=== PATIENT | female | born 1980 | race Caucasian/White ===

== ENCOUNTER 2021-01-20 22:24 | Inpatient (IN) | payer MEDICAID, SELFPAY ==
[2021-01-20 22:25] VITALS: BP 153/105; PULSE 129; RESP 14; TEMP 36.2; O2SAT 96; BMI 28.3
--- NOTE | 2021-01-20 22:26 | ED.RN ---
180 called and made staff aware patient will be coming to the ER. They will see patient in the morning
[2021-01-20 23:02] LABS: Absolute Lymphocyte Count 3.31 X10^3/uL (0.83-4.51); Absolute Neutrophil Count 6.6 X10^3/uL (2.0-7.7); Basophil# 0.14 X10^3/uL; Basophil% 1.3 % (0-1); Eosinophils% 1.8 % (0-5); Hematocrit 41.2 % (37-47); Hemoglobin 13.7 g/dL (12.0-15.0); Lymphocyte # 3.31 X10^3/ul (0.83-4.51); Lymphocyte % 29.8 % (19-41); Mean Corp Hgb Conc 33.3 g/dL (32-36); Mean Corpuscular Hgb 29.1 pg (27.0-32.0); Mean Corpuscular Volume 87.7 fL (81-99); Mean Platelet Vol. 8.5 fl (6.2-12.0); Monocyte# 0.84 X10^3/uL; Monocyte% 7.6 % (0-10); NRBC Flagged by Analyzer 0 % (0-5); Neutrophil # 6.57 X10^3/uL (2.7-7.7); Neutrophil % 59.2 % (47-70); Platelet Count 356 K/mm3 (150-450); RBC Distribution Width SD 41.7 fl (35.1-43.9); White Blood Count 11.1 K/mm3 (4.4-11.0)
[2021-01-20 23:16] LABS: Anion Gap 8 (5-15); BUN 10 mg/dL (7-18); BUN/Creat Ratio 14.7 RATIO (10-20); Calcium,Total 8.6 mg/dL (8.5-10.1); Chloride 107 mmol/L (98-107); Creatinine, Serum 0.68 mg/dL (0.55-1.02); EST Glomerular Filtration Rate 102 mL/min (>60); Est Glom Filt Rate - Afr Amer 123 mL/min (>60); Estimated Creatinine Clearance 78.99 ml/min; Glucose 113 mg/dL (74-106); Potassium 3.5 mmol/L (3.5-5.1); Sodium Level 139 mmol/L (136-145)
[2021-01-20 23:17] LABS: Internal QC Validated? YES +Cl - CLEAR BKGD; Pregnancy, Serum, hCG Quali. NEGATIVE Negative
[2021-01-20 23:19] LABS: Amphetamine Urine VISTA NEGATIVE (<1000 ng/mL); Barbiturate Urine VISTA NEGATIVE (< 200 ng/mL); Benzodiazepine Urine VISTA NEGATIVE (< 200 ng/mL); Cocaine Urine VISTA NEGATIVE (< 300 ng/mL); Ecstacy Urine VISTA POSITIVE (< 500 ng/mL); Methadone Urine VISTA NEGATIVE (< 300 ng/mL); PCP Urine VISTA NEGATIVE (< 25 ng/mL); THC Urine VISTA POSITIVE (< 50 ng/mL); Vista UDS pH Range 6
[2021-01-20 23:51] VITALS: BP 150/94; PULSE 103; RESP 20; TEMP 36.9; O2SAT 98
--- NOTE | 2021-01-20 23:52 | HP.PCM.HOS_ITS ---
HPI - General General Date of Admission: 01/20/21 Date of Service: 01/20/21 Chief Complaint: Acute Opiate Withdrawal HPI Narrative The patient is a 40 y/o F w/ PMHx: Anxiety and Depression, Polysubstance abuse (Notes primarily heroin, Cannabis with prior IVDA hx but since 05/2020 snorting only, had been clean x 2 years prior to this but using for many years), Hepatitis C who presents to the [facility] ED on 01/20/21 w/ noted acute opiate withd elizabeth onset starting this evening following last dose of heroin (notes believes it to have been heroin but admits could be synthetic or fentanyl) at ~ 2 pm on day of presentation with usual usage 1/2-1 gm daily with abdominal pain/cramping, generalized body aches and pains, rhinorrhea, piloerection, fatigue, restless leg, sweating, yawning. Patient interested in attaining clean status. She does present to the ED with her boyfriend who also uses these agents with her. Work-up in the ED included T 98.9, heart rate 108, BP 141/83, respiratory rate 16, 98% on room air, CBC with WBC 11.1, hemoglobin 13.7, platelet 356 with no marked shift, BMP with glucose 113 otherwise not marked appearing, negative testing, UDS with positive methamphetamine and cannabis, ethyl alcohol 97. Given urine drug screen findings did discuss possibility with patient at length that she has been purchasing fentanyl or a synthetic agent and noted that there was methamphetamine in the urine drug screen which she adamantly denies but noted it could certainly have been in what ever she has been taking. [facility] Medical History (Updated 01/21/21 @ 01:[address] Harriet Cisneros MD) Anxiety Anxiety and depression Cannabis use disorder, mild, abuse Depression Heroin abuse Home Medications NK 01/20/21 [History Last Taken Unknown] Allergy/AdvReac Type Severity Reaction Status Date / Time No Known Allergies Allergy Verified 01/20/21 22:25 Family History (Updated 01/21/21 @ 01:[address] Harriet Cisneros MD) Mother Anxiety and depression Father CAD (coronary artery disease) Myocardial infarction Surgical History (Updated 01/21/21 @ 01:[address] Harriet Cisneros MD) History of ankle surgery History of shoulder surgery Social History (Updated 01/21/21 @ 01:[address] Harriet Cisneros MD) household members: other details: Currently helping take care of her grandfather in his home. housing: house number of children: 1 current occupational status: unemployed Smoking Status: Never smoker alcohol intake: current substance use type: marijuana and heroin ROS ROS Narrative Admission Review of Systems: CONSTITUTIONAL: No weight loss, fever, + chills, weakness or fatigue. HEENT: Eyes: No visual loss, blurred vision, double vision or yellow sclerae. Ears, Nose, Throat: No hearing loss, sneezing, congestion, runny nose or sore throat. SKIN: No rash or itching, lesions, wounds. CARDIOVASCULAR: No chest pain, chest pressure or chest discomfort, palpitations, edema, orthopnea, syncopal events. RESPIRATORY: No shortness of breath, cough or sputum, wheezing, hemoptysis. GASTROINTESTINAL: + anorexia, nausea, abdominal cramping, No vomiting, diarrhea, melena, BRBPR. GENITOURINARY: No dysuria, frequency, urgency or retention. NEUROLOGICAL: No headache, dizziness, syncope, paralysis, ataxia, numbness or tingling in the extremities, focal weakness, change in bowel or bladder control, seizure. MUSCULOSKELETAL: + muscle, back pain, joint pain or stiffness. HEMATOLOGIC: No anemia, bleeding or bruising. LYMPHATICS: No enlarged nodes. No history of splenectomy. PSYCHIATRIC: + history of depression or anxiety. ENDOCRINOLOGIC: + reports of sweating, cold or heat intolerance. No polyuria or polydipsia. ALLERGIES: No history of asthma, hives, eczema or rhinitis. Vital Signs Vital Signs Vital Signs: 01/20/21 22:25 Temperature 97.2 F L Temperature Source Temporal Pulse Rate 129 H Respiratory Rate 14 Blood Pressure 153/105 H Blood Pressure Mean 121 Pulse Ox 96 Oxygen Delivery Method Room Air Weight Weight: 145 lb 4.554 oz Body Mass Index (BMI) 28.3 Physical Exam Narrative Physical Examination: General: Awake, alert, oriented x 3 and cooperative, seated upright in the ED bed, extremely restless, mildly agitated. Skin: Normal color, normal turgor, no icterus, no cyanosis. HEENT: AT/NC, EOMI, PERRLA, dry MM, no carotid bruits or JVD noted. Lungs: CTA bilaterally, moderate effort, mild decrease BL bases, no rales, ronchi or wheezing. Heart: Tachycardic with regular rhythm; no gallop, rub audible. Abdomen: Soft, mild generalized discomfort with palpation, ND, hyperactive BS, no HSM. Extremities: No cyanosis, clubbing, or edema. Neurological: Patient awake, alert, oriented as noted, cognitive function intact; pupils equally reactive to light and accommodation, cranial nerves II- XII grossly normal, moving all 4 extremities, no focal deficits, strength moderately global decrease secondary to acute presentation, extremely restless, agitated. Psychiatric: Affect appears restless and agitated, no acute evidence of depressive or anxiety feelings. Results Lab / Micro Data Result Diagrams: 01/20/21 22:50 01/20/21 22:50 Labs: Laboratory Results - last 24 hr 01/20/21 01/20/21 01/20/21 22:40 22:40 22:50 WBC 11.1 H RBC 4.70 Hgb 13.7 Hct 41.2 MCV 87.7 MCH 29.1 MCHC 33.3 RDW Std Deviation 41.7 RDW Coeff of Ronit 13.0 Plt Count 356 MPV 8.5 Immature Gran % (Auto) 0.300 Neut % (Auto) 59.2 Lymph % (Auto) 29.8 [place] % (Auto) 7.6 Eos % (Auto) 1.8 Baso % (Auto) 1.3 H Absolute Neuts (auto) 6.6 Absolute Lymphs (auto) 3.31 Nucleated RBC % 0 Sodium Potassium Chloride Carbon Dioxide Anion Gap BUN Creatinine Estim Creat Clear Calc Est GFR (MDRD) Af Amer Est GFR (MDRD) Non-Af BUN/Creatinine Ratio Glucose Calcium Serum , Qual NEGATIVE Urine Opiates Screen NEGATIVE Urine Methadone Screen NEGATIVE Ur Barbiturates Screen NEGATIVE Ur Phencyclidine Scrn NEGATIVE Ur Amphetamines Screen NEGATIVE U Methamphetamin-MDMA POSITIVE H U Benzodiazepines Scrn NEGATIVE Urine Cocaine Screen NEGATIVE U Cannabinoids Screen POSITIVE H Ur Drug Screen Comment Ethyl Alcohol 01/20/21 01/20/21 22:50 22:50 WBC RBC Hgb Hct MCV MCH MCHC RDW Std Deviation RDW Coeff of Ronit Plt Count MPV Immature Gran % (Auto) Neut % (Auto) Lymph % (Auto) [place] % (Auto) Eos % (Auto) Baso % (Auto) Absolute Neuts (auto) Absolute Lymphs (auto) Nucleated RBC % Sodium 139 Potassium 3.5 Chloride 107 Carbon Dioxide 24.0 Anion Gap 8 BUN 10 Creatinine 0.68 Estim Creat Clear Calc 78.99 Est GFR (MDRD) Af Amer 123 Est GFR (MDRD) Non-Af 102 BUN/Creatinine Ratio 14.7 Glucose 113 H Calcium 8.6 Serum , Qual Urine Opiates Screen Urine Methadone Screen Ur Barbiturates Screen Ur Phencyclidine Scrn Ur Amphetamines Screen U Methamphetamin-MDMA U Benzodiazepines Scrn Urine Cocaine Screen U Cannabinoids Screen Ur Drug Screen Comment Ethyl Alcohol 97.0 Assessment & Plan Assessment/Plan (1) Opiate withdrawal: PLAN: The patient is a 40 y/o F w/ PMHx: Anxiety and Depression, Polysubstance abuse, Hepatitis C who presents to the [facility] ED on 01/20/21 w/ noted acute opiate withdrawal onset starting this evening following last dose of heroin at ~ 2 pm on day of presentation. 1. Acute Opiate Withdrawal: Will admit to [facility], routine labs including CBC, CMP, urine for drug screen obtained in the ED, will initiate and continue on protocol with tapering course of Subutex, as needed tylenol, ibuprofen, bowel regimen, gabapentin, Bentyl, Vistaril, methocarbamol, clonidine, PRN nightly trazodone for insomnia, IV fluids, IV antiemetics. Once patient clinically improved and completion of taper nearing will plan consultation with case management for transition to next level of rehabilitation care. Given patient UDS discussed possibility that patient had been possibly using a synthetic versus fentanyl. 2. Polysubstance Abuse, IVDA Hx, History of Hepatitis C, Chronic: Patient currently not candidate for hep C treatment currently as needs to be clean, sober x 6 months, documented attendance NA or AA meetings, counseling and ongoing negative drug screens. HIV, hepatitis panel to assess for co-infection pending. Encouraged PCP establishment and follow-up. 3. Anxiety and Depression: Patient with reported history, not on any agents, given presentation will encourage continued follow-up with 180 with counseling especially given ongoing significant drug usage. 4. DVT prophylaxis: Low risk, encourage ambulation. Charges/Coding Visit Charges Inpatient E&M: 22634 Init Hosp L3
[2021-01-21 00:01] VITALS: BMI 28.3
--- NOTE | 2021-01-21 00:28 | EDS_ITS ---
HPI History of Present Illness Chief Complaint: Substance Abuse Informant: patient Narrative Narrative: Patient is a 40-year-old female with history of IV drug abuse presenting for detox. Patient states that she uses fentanyl daily to snort. She last used this morning. She does have a history of hepatitis C. She does have a past history of IV drug use but did not do any currently. She states she relapsed couple months ago but before that was clean for 2 years. Does smoke cigarettes daily. Is only of a headache. She normally will take ibuprofen for headaches. States she feels very jittery right now. No other complaints at this time. [facility] Medical History Anxiety Anxiety and depression Cannabis use disorder, mild, abuse Depression Heroin abuse Home Medications NK 01/20/21 [History Last Taken Unknown] Allergy/AdvReac Type Severity Reaction Status Date / Time No Known Allergies Allergy Verified 01/20/21 22:25 Family History Mother Anxiety and depression Father CAD (coronary artery disease) Myocardial infarction Surgical History History of ankle surgery History of shoulder surgery Social History household members: other details: Currently helping take care of her grandfather in his home. housing: house number of children: 1 current occupational status: unemployed Smoking Status: Never smoker alcohol intake: current substance use type: marijuana and heroin ROS ROS ED Constitutional Constitutional ED: Reports malaise; Denies chills or fever(s) Eyes Eyes: Denies blurry vision or loss of vision ENT ENT ED: Denies rhinorrhea or sore throat Cardiovascular Cardiovascular: Denies chest pain or dizziness Respiratory/Chest Respiratory/Chest: Denies cough or dyspnea Gastrointestinal Gastrointestinal: Denies nausea or vomiting Genitourinary Genitourinary ED: Denies dysuria or hematuria Musculoskeletal Musculoskeletal: Denies arthralgias or myalgias Integumentary Denies rash or wounds Neurologic Neurologic: Reports headache(s); Denies focal weakness Psychiatric Psychiatric: Denies anxiety or behavioral changes EXAM Physical Exam Const Vital Signs: 01/20/21 22:25 Temperature 97.2 F L Temperature Source Temporal Pulse Rate 129 H Respiratory Rate 14 Blood Pressure 153/105 H Blood Pressure Mean 121 Pulse Ox 96 Oxygen Delivery Method Room Air Positive well nourished and well developed General Appearance ED: well developed HEENT Reports moist mucous membranes atraumatic Eyes PERRL and EOMs intact bilaterally Neck supple Lymph Lymphatic: no lymphadenopathy noted Chest Wall inspection of chest normal Resp clear to auscultation bilaterally Cardio regular rhythm and no murmurs Rate: tachycardic GI soft to palpation, non-tender and non-distended Back/Spine no CVA tenderness Neuro oriented x3 and CN's II-XII intact bilaterally Sensorium / Orientation: alert Psych mental status grossly normal and thought process normal Skin Lesions: no lesions Rashes: no rashes MDM MDM MDM Narrative Medical decision making narrative: Patient evaluated for request of opioid wit hdrawal. Is she appears to be starting to withdrawal and is mildly tachycardic and tremulous. She appears nontoxic and in no acute distress. She is given Motrin for her headache. She is admitted to hospital service for inpatient detox. Of note drug screen is negative for opioids however she she might be using fentanyl. Lab Data Labs: Laboratory Results - last 24 hr 01/20/21 01/20/21 01/20/21 22:40 22:40 22:50 WBC 11.1 H RBC 4.70 Hgb 13.7 Hct 41.2 MCV 87.7 MCH 29.1 MCHC 33.3 RDW Std Deviation 41.7 RDW Coeff of Ronit 13.0 Plt Count 356 MPV 8.5 Immature Gran % (Auto) 0.300 Neut % (Auto) 59.2 Lymph % (Auto) 29.8 [place] % (Auto) 7.6 Eos % (Auto) 1.8 Baso % (Auto) 1.3 H Absolute Neuts (auto) 6.6 Absolute Lymphs (auto) 3.31 Nucleated RBC % 0 Sodium Potassium Chloride Carbon Dioxide Anion Gap BUN Creatinine Estim Creat Clear Calc Est GFR (MDRD) Af Amer Est GFR (MDRD) Non-Af BUN/Creatinine Ratio Glucose Calcium Serum , Qual NEGATIVE Urine Opiates Screen NEGATIVE Urine Methadone Screen NEGATIVE Ur Barbiturates Screen NEGATIVE Ur Phencyclidine Scrn NEGATIVE Ur Amphetamines Screen NEGATIVE U Methamphetamin-MDMA POSITIVE H U Benzodiazepines Scrn NEGATIVE Urine Cocaine Screen NEGATIVE U Cannabinoids Screen POSITIVE H Ur Drug Screen Comment Ethyl Alcohol HIV 1&2 Antibody 01/20/21 01/20/21 01/20/21 22:50 22:50 22:50 WBC RBC Hgb Hct MCV MCH MCHC RDW Std Deviation RDW Coeff of Ronit Plt Count MPV Immature Gran % (Auto) Neut % (Auto) Lymph % (Auto) [place] % (Auto) Eos % (Auto) Baso % (Auto) Absolute Neuts (auto) Absolute Lymphs (auto) Nucleated RBC % Sodium 139 Potassium 3.5 Chloride 107 Carbon Dioxide 24.0 Anion Gap 8 BUN 10 Creatinine 0.68 Estim Creat Clear Calc 78.99 Est GFR (MDRD) Af Amer 123 Est GFR (MDRD) Non-Af 102 BUN/Creatinine Ratio 14.7 Glucose 113 H Calcium 8.6 Serum , Qual Urine Opiates Screen Urine Methadone Screen Ur Barbiturates Screen Ur Phencyclidine Scrn Ur Amphetamines Screen U Methamphetamin-MDMA U Benzodiazepines Scrn Urine Cocaine Screen U Cannabinoids Screen Ur Drug Screen Comment Ethyl Alcohol 97.0 HIV 1&2 Antibody Non-Reactive Discharge Plan Dx/Rx/DC Orders Clinical Impression: Opiate withdrawal Disposition Disposition: Acute Care Hospital [facility] Discharge Date/Time: 01/21/21 00:03
[2021-01-21] MEDS: Lactated Ringers 1,000 ML 125 ML IV (00:30)
[2021-01-21] MEDS: Ibuprofen 600 MG Tablet PO ×3 (00:41→22:07)
[2021-01-21 00:42] VITALS: BP 141/83; PULSE 108; RESP 16; TEMP 37.2; O2SAT 98
[2021-01-21] MEDS: Buprenorphine HCl 2 MG TAB.SUBL SL ×3 (00:48→16:00)
[2021-01-21 00:49] LABS: HIV - WCH Non-Reactive (Nonreactive)
[2021-01-21] MEDS: hydrOXYzine PAM 25 MG Capsule 50 MG PO ×3 (02:56→16:04)
[2021-01-21] MEDS: Ondansetron 8 MG Tablet PO (02:56)
[2021-01-21] MEDS: Dicyclomine 10 MG Capsule 20 MG PO ×2 (02:57→09:25)
[2021-01-21] MEDS: cloNIDine HCl 0.1 MG Tablet PO (03:52)
[2021-01-21 05:10] VITALS: BP 150/84; PULSE 88; RESP 18; TEMP 37.1; O2SAT 97
[2021-01-21] MEDS: Methocarbamol 750 MG Tablet 1500 MG PO ×2 (05:12→12:14)
[2021-01-21] MEDS: Gabapentin 300 MG Capsule PO ×2 (05:12→18:21)
[2021-01-21 08:00] VITALS: O2SAT 95
[2021-01-21 09:00] VITALS: BP 118/80; PULSE 99; RESP 18; TEMP 36.4; O2SAT 98
--- NOTE | 2021-01-21 10:17 | PN.HOSP_ITS ---
Subjective Subjective Patient in and examined. She is here for acute opiate withdrawal. She complains of tremors and chills and abdominal cramps. Review of systems otherwise negative. She has otherwise remained hemodynamically stable. Objective Data Objective Data Vital Signs: Vital Signs Temp Pulse Resp BP Pulse Ox 97.6 F L 99 18 118/80 98 01/21/21 09:00 01/21/21 09:00 01/21/21 09:00 01/21/21 09:00 01/21/21 09:00 Oxygen Delivery Method Room Air Weight: 144 lb 13.499 oz Body Mass Index (BMI) 28.3 Intake & Output: Intake and Output for Last 24 Hours 01/19/21 01/20/21 01/21/21 23:59 23:59 23:59 Intake Total 1120 / 1120 Balance 1120 / 1120 Lab / Micro Data Result Diagrams: 01/20/21 22:50 01/20/21 22:50 Labs: Laboratory Results - last 24 hr 01/20/21 01/20/21 01/20/21 22:40 22:40 22:50 WBC 11.1 H RBC 4.70 Hgb 13.7 Hct 41.2 MCV 87.7 MCH 29.1 MCHC 33.3 RDW Std Deviation 41.7 RDW Coeff of Ronit 13.0 Plt Count 356 MPV 8.5 Immature Gran % (Auto) 0.300 Neut % (Auto) 59.2 Lymph % (Auto) 29.8 [place] % (Auto) 7.6 Eos % (Auto) 1.8 Baso % (Auto) 1.3 H Absolute Neuts (auto) 6.6 Absolute Lymphs (auto) 3.31 Nucleated RBC % 0 Sodium Potassium Chloride Carbon Dioxide Anion Gap BUN Creatinine Estim Creat Clear Calc Est GFR (MDRD) Af Amer Est GFR (MDRD) Non-Af BUN/Creatinine Ratio Glucose Calcium Serum , Qual NEGATIVE Urine Opiates Screen NEGATIVE Urine Methadone Screen NEGATIVE Ur Barbiturates Screen NEGATIVE Ur Phencyclidine Scrn NEGATIVE Ur Amphetamines Screen NEGATIVE U Methamphetamin-MDMA POSITIVE H U Benzodiazepines Scrn NEGATIVE Urine Cocaine Screen NEGATIVE U Cannabinoids Screen POSITIVE H Ur Drug Screen Comment Ethyl Alcohol HIV 1&2 Antibody 01/20/21 01/20/21 01/20/21 22:50 22:50 22:50 WBC RBC Hgb Hct MCV MCH MCHC RDW Std Deviation RDW Coeff of Ronit Plt Count MPV Immature Gran % (Auto) Neut % (Auto) Lymph % (Auto) [place] % (Auto) Eos % (Auto) Baso % (Auto) Absolute Neuts (auto) Absolute Lymphs (auto) Nucleated RBC % Sodium 139 Potassium 3.5 Chloride 107 Carbon Dioxide 24.0 Anion Gap 8 BUN 10 Creatinine 0.68 Estim Creat Clear Calc 78.99 Est GFR (MDRD) Af Amer 123 Est GFR (MDRD) Non-Af 102 BUN/Creatinine Ratio 14.7 Glucose 113 H Calcium 8.6 Serum , Qual Urine Opiates Screen Urine Methadone Screen Ur Barbiturates Screen Ur Phencyclidine Scrn Ur Amphetamines Screen U Methamphetamin-MDMA U Benzodiazepines Scrn Urine Cocaine Screen U Cannabinoids Screen Ur Drug Screen Comment Ethyl Alcohol 97.0 HIV 1&2 Antibody Non-Reactive Physical Exam Const alert, oriented x3 and no apparent distress Exam Limitations: no limitations HEENT head/scalp atraumatic and moist oral mucous membranes Head and Scalp: normocephalic Eyes PERRL, EOMs intact bilaterally and conjunctivae normal Neck no lymphadenopathy Resp normal respiratory effort, no retractions, no use of accessory muscles and clear to auscultation bilaterally Cardio regular rate, regular rhythm, S1 normal heart sound, S2 normal heart sound and no gallops GI normal to inspection, nondistended, normoactive bowel sounds, soft to palpation, non-tender and non-distended Extremity normal to inspection, full ROM and no clubbing, cyanosis or edema Peripheral Pulses: Yes pulses 2+ throughout Skin no rashes or lesions noted Neuro oriented x3 Sensorium / Orientation: awake and alert Psych affect normal Assessment & Plan Assessment/Plan (1) Opiate withdrawal: PLAN: #Acute opioid withdrawal * On opiate withdrawal protocol with buprenorphine * Monitor CI NA score * On adjunctive medications for supportive treatment #History of hepatitis C: * Chronic. Will need to be clean for at least 6 months before qualifying for treatment. * Follow-up with GI on outpatient basis #Anxiety and depression: Not on any medication currently. To follow-up with PCP on outpatient basis. DVT prophylaxis: Low risk. Encourage ambulation. Charges/Coding Visit Charges Inpatient E&M: 96834 Subs Hosp L2
[2021-01-21 14:12] VITALS: BP 140/87; PULSE 90; RESP 15; TEMP 36.8; O2SAT 98
[2021-01-21 21:21] VITALS: BP 130/76; PULSE 87; RESP 18; TEMP 36.8; O2SAT 98
[2021-01-21] MEDS: Mag Hydrox/Al Hydrox/Simeth 30 ML UDC PO (22:07)
[2021-01-21] MEDS: traZODone 100 MG Tablet PO (22:07)
[2021-01-22] MEDS: Buprenorphine HCl 2 MG TAB.SUBL SL ×3 (00:30→16:05)
[2021-01-22] MEDS: hydrOXYzine PAM 25 MG Capsule 50 MG PO ×3 (00:30→15:04)
[2021-01-22 03:57] VITALS: BP 146/96; PULSE 63; RESP 18; TEMP 36.7; O2SAT 96
[2021-01-22 07:44] VITALS: O2SAT 95
[2021-01-22] MEDS: Mag Hydrox/Al Hydrox/Simeth 30 ML UDC PO (08:01)
--- NOTE | 2021-01-22 08:32 | ADDICTION ---
This internal communications writer met with PT to conduct ASAM, MSE, DUDIT assessments and to plan for d/c. PT A+Ox4 and participated appropriately. All assessments completed, faxed to [facility] and placed in PT's chart. PT to d/c to home and plans to follow up with this internal communications writer /for ongoing counseling services at [facility] post d/c. PT has scheduled appointment with this internal communications writer on 01/29/21 and is amiable to this plan. PT reported that she uses opioids due to pain related to Fibromyalgia. This internal communications writer provided resources for PCP and will inform [facility] of this for other referrals/consultations.
[2021-01-22 09:30] VITALS: BP 149/83; PULSE 88; RESP 18; TEMP 36.8; O2SAT 100
--- NOTE | 2021-01-22 12:12 | PN.HOSP_ITS ---
Subjective Subjective Patient seen and examined. She still complains of tremors, but has no other active complaints. Review of systems is otherwise negative. She has remained hemodynamically stable. Objective Data Objective Data Vital Signs: Vital Signs Temp Pulse Resp BP Pulse Ox 98.2 F 88 18 149/83 H 100 01/22/21 09:30 01/22/21 09:30 01/22/21 09:30 01/22/21 09:30 01/22/21 09:30 Oxygen Delivery Method Room Air Weight: 144 lb 13.499 oz Body Mass Index (BMI) 28.3 Intake & Output: Intake and Output for Last 24 Hours 01/20/21 01/21/21 01/22/21 23:59 23:59 23:59 Intake Total 1720 / 1720 360 / 360 Balance 1720 / 1720 360 / 360 Lab / Micro Data Result Diagrams: 01/20/21 22:50 01/20/21 22:50 Physical Exam Const alert, oriented x3 and no apparent distress Exam Limitations: no limitations HEENT head/scalp atraumatic and moist oral mucous membranes Eyes PERRL, EOMs intact bilaterally and conjunctivae normal Neck no lymphadenopathy Resp normal respiratory effort, no retractions, no use of accessory muscles and clear to auscultation bilaterally Cardio regular rate, regular rhythm, S1 normal heart sound, S2 normal heart sound and no gallops GI normal to inspection, nondistended, normoactive bowel sounds, soft to palpation, non-tender and non-distended Extremity normal to inspection, full ROM and no clubbing, cyanosis or edema Skin no rashes or lesions noted Neuro oriented x3 Sensorium / Orientation: awake and alert Psych Psych Narrative: anxious Assessment & Plan Assessment/Plan (1) Opiate withdrawal: PLAN: #Acute opioid withdrawal * On opiate withdrawal protocol with buprenorphine * Monitor CI NA score * On adjunctive medications for supportive treatment #History of hepatitis C: * Chronic. Will need to be clean for at least 6 months before qualifying for treatment. * Follow-up with GI on outpatient basis #Anxiety and depression: Not on any medication currently. To follow-up with PCP on outpatient basis. DVT prophylaxis: Low risk. Encourage ambulation. Charges/Coding Visit Charges Inpatient E&M: 28769 Subs Hosp L2
[2021-01-22 14:09] LABS: HEPATITIS B SURFACE AG Negative (Negative); Hepatitis B Core AB IgM Negative (Negative); Hepatitis B Core Ab Total Negative (Negative); Hepatitis Be Ab Negative (Negative); Hepatitis Be Ag Negative (Negative)
[2021-01-22] MEDS: Methocarbamol 750 MG Tablet 1500 MG PO ×2 (15:04→21:18)
[2021-01-22 15:05] VITALS: BP 145/113; PULSE 88; RESP 18; TEMP 36.3; O2SAT 99
[2021-01-22] MEDS: Gabapentin 300 MG Capsule PO (16:05)
[2021-01-22 21:04] VITALS: BP 159/96; PULSE 71; RESP 18; TEMP 36.9; O2SAT 99
[2021-01-22] MEDS: cloNIDine HCl 0.1 MG Tablet PO (21:17)
[2021-01-22] MEDS: traZODone 100 MG Tablet PO (21:17)
[2021-01-22] MEDS: Ibuprofen 600 MG Tablet PO (21:17)
[2021-01-22] MEDS: Dicyclomine 10 MG Capsule 20 MG PO (21:17)
[2021-01-23] MEDS: Acetaminophen 325 MG Tablet 650 MG PO (01:38)
[2021-01-23] MEDS: Buprenorphine HCl 2 MG TAB.SUBL SL ×2 (01:38→12:10)
[2021-01-23] MEDS: hydrOXYzine PAM 25 MG Capsule 50 MG PO ×3 (01:38→17:31)
[2021-01-23 03:01] VITALS: BP 130/67; PULSE 70; RESP 18; TEMP 36.7; O2SAT 99
[2021-01-23 09:00] VITALS: BP 160/87; PULSE 77; RESP 20; TEMP 36.1; O2SAT 99
[2021-01-23 09:12] LABS: Hep B Surface Antibodies Non Reactive (.)
[2021-01-23 09:13] LABS: Hepatitis C Ab >11.0 s/co ratio (0.0-0.9)
[2021-01-23] MEDS: Dicyclomine 10 MG Capsule 20 MG PO ×2 (09:35→17:31)
[2021-01-23] MEDS: Ibuprofen 600 MG Tablet PO (09:36)
[2021-01-23] MEDS: cloNIDine HCl 0.1 MG Tablet PO ×2 (09:36→21:21)
[2021-01-23] MEDS: Methocarbamol 750 MG Tablet 1500 MG PO ×2 (09:38→21:22)
--- NOTE | 2021-01-23 10:30 | NURSING ---
pts boyfriend walked onto [facility], staTEs he was with [facility] and proceeded to walk into pts rm. this rn, gema denson and parul britt back to and informed bf that pt may not have visitors and that he would need to leave. bf states he needs the pts car keys to get into her car and that he will bring the keys back. this is ok with pt. locked tote unlocked, keys given to bf and parul britt escorted bf out of building with security. bf brought keys back to the hospital at [facility]. keys placed back in tote and tote relocked. pt aware. pt upset by bf coming into her rm. this rn apologized to pt. pt aware bf is not allowed on hospital property and that he should not be coming back.
--- NOTE | 2021-01-23 14:24 | PN.HOSP_ITS ---
Subjective Subjective Patient seen and examined. She was still complaining of cramps from the withdrawal and also had significant anxiety. Even though today's day 3, she does not feel comfortable being discharged home. Review of systems otherwise negative. Objective Data Objective Data Vital Signs: Vital Signs Temp Pulse Resp BP Pulse Ox 96.9 F L 77 20 H 160/87 H 99 01/23/21 09:00 01/23/21 09:00 01/23/21 09:00 01/23/21 09:00 01/23/21 09:00 Oxygen Delivery Method Room Air Weight: 144 lb 13.499 oz Body Mass Index (BMI) 28.3 Intake & Output: Intake and Output for Last 24 Hours 01/21/21 01/22/21 01/23/21 23:59 23:59 23:59 Intake Total 1720 / 1720 1000 / 1000 200 / 200 Balance 1720 / 1720 1000 / 1000 200 / 200 Lab / Micro Data Result Diagrams: 01/20/21 22:50 01/20/21 22:50 Labs: Laboratory Results - last 24 hr 01/21/21 06:30 Hep Bs Antigen Negative Hep Bs Antibody Non Reactive Hep B Core Total Ab Negative Hep B Core IgM Ab Negative Hepatitis Be Antibody Negative Hepatitis Be Antigen Negative Hepatitis C Antibody >11.0 H Physical Exam Const alert and oriented x3 Constitutional Narrative: very anxious Exam Limitations: no limitations HEENT head/scalp atraumatic and moist oral mucous membranes Head and Scalp: normocephalic Eyes PERRL, EOMs intact bilaterally and conjunctivae normal Neck no lymphadenopathy Resp normal respiratory effort, no retractions, no use of accessory muscles and clear to auscultation bilaterally Cardio regular rate, regular rhythm, S1 normal heart sound, S2 normal heart sound and no gallops GI normal to inspection, nondistended, normoactive bowel sounds, soft to palpation and non-distended GI Narrative: minimal tenderness to palpation, though she complained of intense cramping. Extremity normal to inspection, full ROM and no clubbing, cyanosis or edema Peripheral Pulses: Yes pulses 2+ throughout Skin no rashes or lesions noted Neuro oriented x3 Sensorium / Orientation: awake and alert Psych Psych Narrative: very anxious Assessment & Plan Assessment/Plan (1) Opiate withdrawal: PLAN: #Acute opioid withdrawal * On opiate withdrawal protocol with buprenorphine * Complains of severe anxiety and abdominal cramping today * Monitor CI NA score * On adjunctive medications for supportive treatment #History of hepatitis C: * Chronic. Will need to be clean for at least 6 months before qualifying for treatment. * Follow-up with GI on outpatient basis #Anxiety and depression: Not on any medication currently. To follow-up with PCP on outpatient basis. #Fibromyalgia * doesnt follow up with rheumatology. * counseled that she would need to establish with rheumatology on outpatient basis to manage her fibromyalgia * DVT prophylaxis: Low risk. Encourage ambulation. Disposition: For likely DC home tomorrow. Charges/Coding Visit Charges Inpatient E&M: 31216 Subs Hosp L2
[2021-01-23 14:43] VITALS: BP 130/89; PULSE 90; RESP 18; TEMP 36.6; O2SAT 99
[2021-01-23 21:20] VITALS: BP 115/68; PULSE 89; RESP 16; TEMP 36.6; O2SAT 97
[2021-01-23] MEDS: traZODone 100 MG Tablet PO (21:22)
[2021-01-24 07:35] VITALS: O2SAT 98
[2021-01-24 07:40] VITALS: BP 153/81; PULSE 79; RESP 18; TEMP 36.6; O2SAT 95
[2021-01-24] MEDS: Dicyclomine 10 MG Capsule 20 MG PO (07:43)
[2021-01-24] MEDS: hydrOXYzine PAM 25 MG Capsule 50 MG PO (07:43)
--- NOTE | 2021-01-24 08:23 | PCM.DC ---
Discharge Instructions Diet Discharge Diet: No restrictions Activity Discharge Activity: Return to Normal Activity Dressing / Incision Call your doctor if you observe: Fever of 101 or Higher, Shortness of breath, Dizziness, Swelling in the ankles, Chest pain and Increased palpitations (irregular heartbeat) Follow Up Care Test Results: Test results from this visit will be discussed in further detail at your follow-up appointment, if applicable. Discharge Plan Admission Admit Date/Time: 01/20/21 23:55 Attending Provider: Douglas Lima Primary Care Provider: Care Physician,Ayanna Primary Discharge Orders/Prescriptions Prescriptions: No Action NK RF: 0 Referrals / Follow Up: Care Physician,No Primary [Primary Care Provider] - Disposition Disposition (needs filled in before D/C Order can be placed): Home, Self Care
--- NOTE | 2021-01-24 14:24 | PCM.DC.SUM ---
Providers Date of Admission: 01/20/21 Primary Care Physician: No Primary Care Phys Reason For Visit: OPIATE WITHDRAWAL Diagnosis Discharge Diagnosis (1) Opiate withdrawal: Status: Acute Code(s): F11.23 - Opioid dependence with withdrawal Medications at Discharge Home Medications NK 01/20/21 Hospital Course Operations None Procedures None Summary of Care Provided Minutes Spent on Discharge: 35 Hospital Course: Per HPI: The patient is a 40 y/o F w/ PMHx: Anxiety and Depression, Polysubstance abuse (Notes primarily heroin, Cannabis with prior IVDA hx but since 05/2020 snorting only, had been clean x 2 years prior to this but using for many years), Hepatitis C who presents to the [facility] ED on 01/20/21 w/ noted acute opiate withdrawal onset starting this evening following last dose of heroin (notes believes it to have been heroin but admits could be synthetic or fentanyl) at ~ 2 pm on day of presentation with usual usage 1/2-1 gm daily with abdominal pain/cramping, generalized body aches and pains, rhinorrhea, piloerection, fatigue, restless leg, sweating, yawning. Patient interested in attaining clean status. She does present to the ED with her boyfriend who also uses these agents with her. Work-up in the ED included T 98.9, heart rate 108, BP 141/83, respiratory rate 16, 98% on room air, CBC with WBC 11.1, hemoglobin 13.7, platelet 356 with no marked shift, BMP with glucose 113 otherwise not marked appearing, negative testing, UDS with positive methamphetamine and cannabis, ethyl alcohol 97. Given urine drug screen findings did discuss possibility with patient at length that she has been purchasing fentanyl or a synthetic agent and noted that there was methamphetamine in the urine drug screen which she adamantly denies but noted it could certainly have been in what ever she has been taking. Hospital Course: 1. Acute opiate [id number] female presents to the hospital after being clean for about 2 years and relapsed using 0.5 to 1 g daily. She thinks that she has been using heroin but notes it could be synthetic or fentanyl at this point and would like detox. She did complete 4 days of detox and completed her withdrawal protocol however she remains anxious I discussed with her that the plan was to meet with 180 on 01/29/2021, and while the documentation yesterday supports that she was okay with this plan today she states that she thought that it was going to be much sooner than that and she does not think that she can manage without intervention. I discussed with her that keeping her here for an extra 5days was not an option however once discharged she could potentially reach out to them on an outpatient basis and she said that she may go back to a program that she used in [place]. She was ultimately okay with the plan for discharge today. 2. History of hepatitis C, anxiety and depression, fibromyalgia her chronic medical conditions which complicate her care. Her home medications were continued where appropriate Physical Exam Const alert, oriented x3 and no apparent distress General Appearance: cooperative HEENT normocephalic Mouth: dry mucous membranes Eyes PERRL, EOMs intact bilaterally and conjunctivae normal Neck supple and no JVD Resp normal respiratory effort, no retractions, no use of accessory muscles and clear to auscultation bilaterally Auscultation: Negative for crackles, rales, rhonchi or wheezes Cardio regular rate, regular rhythm, S1 normal heart sound, S2 normal heart sound and no murmurs GI soft to palpation, non-tender and non-distended; Negative for hepatosplenomegaly Extremity no clubbing, cyanosis or edema Skin no rashes or lesions noted Neuro no focal motor deficits and no sensory deficits noted Psych Activity / Motor Behavior: restless Mood & Affect: anxious Weight / BMI Weight Weight: 144 lb 13.499 oz Body Mass Index (BMI) 28.3 ABG / Lab / Microbiology Data Result Diagrams: 01/20/21 22:50 01/20/21 22:50 D/C Instructions Discharge Diet: No restrictions Call your doctor if you observe: Fever of 101 or Higher, Shortness of breath, Dizziness, Swelling in the ankles, Chest pain and Increased palpitations (irregular heartbeat) Meaningful Use Info Meaningful Use Diagnoses (Choose all that apply): None applicable Discharge Plan Admission Admit Date/Time: 01/20/21 23:55 Attending Provider: Douglas Lima Primary Care Provider: Care Physician,No Primary Discharge Orders/Prescriptions Prescriptions: No Action NK RF: 0 Referrals / Follow Up: Care Physician,No Primary [Primary Care Provider] - Disposition Disposition (needs filled in before D/C Order can be placed): Home, Self Care Charges/Coding Visit Charges Inpatient E&M: 10686 Subs Hosp L2
== END 2021-01-24 11:00 | disposition home or self-care (01) | DRG 773 ==
LOC: ED 23:27 → PCU 01-21 02:48
PROVIDERS: Admitting Provider Family Medicine; Emergency Provider Emergency Medicine; Visit Provider Family Medicine
DX: F11.23 Opioid dependence with withdrawal (principal); F12.10 Cannabis abuse, uncomplicated; B18.2 Chronic viral hepatitis C; M79.7 Fibromyalgia; F17.210 Nicotine dependence, cigarettes, uncomplicated; F32.9 Major depressive disorder, single episode, unspecified; F41.9 Anxiety disorder, unspecified
CPT/HCPCS: 36415; 80048; 80307; 82077; 84703; 85025; 86703; 86704; 86705; 86706; 86707; 86803; 87340; 87350; 99283; J7120

== ENCOUNTER → 2021-02-03 13:08 | Outpatient (CLI) | payer MEDICAID, SELFPAY ==
[2021-01-21 00:01] VITALS: BMI 28.3
[2021-02-03 16:16] LABS: Hepatitis B Surface Antigen Non-Reactive (Nonreactive); Hepatitis C Antibody Preliminary Reactive (Nonreactive)
[2021-02-04 14:52] LABS: AST(SGOT) 18 U/L (15-37); Alanine Aminotransfer ALT/SGPT 23 U/L (13-56); Albumin, Serum 4.6 g/dL (3.2-5.0); Alkaline Phosphatase 66 U/L (45-117); Globulin 3.3 g/dL (2.2-4.2); Protein, Total 7.9 g/dL (6.4-8.2)
[2021-02-06 12:09] LABS: HCV Quant. RNA PCR HCV Not Detected IU/mL (.)
== END ==
DX: R63.0 Anorexia (principal); R53.81 Other malaise; R11.0 Nausea
CPT/HCPCS: 36415; 80076; 86803; 87340; 87522

== ENCOUNTER → 2021-06-03 09:57 | Outpatient (CLI) | payer MEDICAID, SELFPAY ==
[2021-06-03 12:20] LABS: Absolute Lymphocyte Count 3.35 X10^3/uL (0.83-4.51); Basophil# 0.13 X10^3/uL; Basophil% 1.8 % (0-1); Eosinophil# 0.28 X10^3/uL; Eosinophils% 3.8 % (0-5); Hematocrit 38.5 % (37-47); Hemoglobin 12.5 g/dL (12.0-15.0); Lymphocyte # 3.35 X10^3/ul (0.83-4.51); Lymphocyte % 45.3 % (19-41); Mean Corp Hgb Conc 32.5 g/dL (32-36); Mean Corpuscular Hgb 27.9 pg (27.0-32.0); Mean Corpuscular Volume 85.9 fL (81-99); Mean Platelet Vol. 9.3 fl (6.2-12.0); Monocyte# 0.65 X10^3/uL; Monocyte% 8.8 % (0-10); NRBC Flagged by Analyzer 0 % (0-5); Neutrophil # 2.98 X10^3/uL (2.7-7.7); Neutrophil % 40.2 % (47-70); Platelet Count 382 K/mm3 (150-450); RBC Distribution Width CV 12.8 % (11.6-14.6); RBC Distribution Width SD 40.2 fl (35.1-43.9); Red Blood Count 4.48 M/mm3 (4.2-5.4); White Blood Count 7.4 K/mm3 (4.4-11.0)
[2021-06-03 12:51] LABS: Vitamin B12 694 pg/mL (211-911); Vitamin D,25 Hydroxy 15.6 ng/mL
[2021-06-03 13:08] LABS: Hemoglobin A1c 5.4 % (3.8-5.6)
[2021-06-03 13:13] LABS: ALB/GLOB Ratio 1.2 RATIO (0.9-2.4); AST(SGOT) 22 U/L (15-37); Alanine Aminotransfer ALT/SGPT 27 U/L (13-56); Alkaline Phosphatase 50 U/L (45-117); Anion Gap 8 (5-15); BUN 14 mg/dL (7-18); BUN/Creat Ratio 18.1 RATIO (10-20); Calcium,Total 8.8 mg/dL (8.5-10.1); Chloride 105 mmol/L (98-107); Cholesterol 140 mg/dL (200); Creatinine, Serum 0.77 mg/dL (0.55-1.02); EST Glomerular Filtration Rate 88 mL/min (>60); Est Glom Filt Rate - Afr Amer 106 mL/min (>60); Globulin 3.3 g/dL (2.2-4.2); Glucose 100 mg/dL (74-106); High Density Lipoprotein 41 mg/dL; Potassium 4.2 mmol/L (3.5-5.1); Protein, Total 7.3 g/dL (6.4-8.2); Sodium Level 139 mmol/L (136-145); T4 Free Direct 0.88 ng/dL (0.76-1.46); Thyroid Stim Hormone (TSH) 1.75 uIU/mL (0.358-3.74); Triglycerides 125 mg/dL; Very Low Density Lipoprotein 25 mg/dL (5-40)
== END ==
DX: Z79.899 Other long term (current) drug therapy (principal)
CPT/HCPCS: 36415; 80053; 80061; 82306; 82607; 82746; 83036; 84439; 84443; 85025